=== PATIENT | female | born 1990 | race Caucasian/White ===

== ENCOUNTER 2016-12-28 21:16 | Emergency (ER) | payer OTHER ==
[~2016-12-28] VITALS: Ht 162.6 cm; Wt 46.5 kg
[~2016-12-28 21:16] MED LIST: NITR-58 PO; ONDA4TAB14 PO; PSYL1040 PO
[2016-12-28 21:38] VITALS: Ht 162.6 cm; Wt 46.5 kg
[2016-12-28] MEDS ORDERED: ONDANSETRON 4 MG INJ IV STA (22:11)
[2016-12-28] MEDS ORDERED: SOD CHLORIDE 0.9% 1,000 ML IV STA (22:11)
[2016-12-28 22:17] LABS: URINE BLOOD (Dip) POC Negative (NEGATIVE)
[2016-12-28 22:51] LABS: BASOPHIL # 0.1 10^3/ul (0.0-0.1); BASOPHILS % 0.5 % (0.0-2.0); EOSINOPHILS % 0.2 % (0.0-7.0); HEMOGLOBIN 13.8 g/dl (12.0-16.0); LYMPHOCYTES # 1.4 10^3/ul (0.8-2.9); LYMPHOCYTES % 15.2 % (15.0-51.0); MEAN CORPUSCULAR HEMOGLOBIN 29.9 pg (29.0-33.0); MEAN CORPUSCULAR HGB CONC 34.5 g/dl (32.0-37.0); MEAN CORPUSCULAR VOLUME 86.6 fl (82.0-101.0); MEAN PLATELET VOLUME 10.9 fl (7.4-10.4); MONOCYTE # 0.7 10^3/ul (0.3-0.9); MONOCYTES % 7.2 % (0.0-11.0); NEUTROPHILS % 76.5 % (39.0-77.0); PLATELET COUNT 196 10^3/UL (140-415); RED BLOOD COUNT 4.62 10^6/ul (4.20-5.40); WHITE BLOOD COUNT 9.2 10^3/ul (4.8-10.8)
[2016-12-28 23:11] LABS: ALBUMIN 4.8 g/dl (3.3-4.9); ALBUMIN/GLOBULIN RATIO 1.65; BILIRUBIN,INDIRECT 0.4 mg/dl (0-1.1); BILIRUBIN,TOTAL 0.4 mg/dl (0.2-1.3); CALCIUM 9.7 mg/dl (8.4-10.2); CREATININE 0.71 mg/dl (0.44-1.00); POTASSIUM 4.1 mmol/L (3.5-5.1); TOTAL PROTEIN 7.7 g/dl (6.1-8.1)
--- NOTE | 2016-12-28 23:14 | RADRPT ---
PROCEDURE: CT abdomen and pelvis without contrast. CLINICAL INDICATION: Abdominal pain. TECHNIQUE: CT of the abdomen and pelvis without contrast was performed on a multidetector high-reso lution CT scanner. Coronal and sagittal reformatted images were obtained from the axial source image s. Images were reviewed on a high-resolution PACS workstation. The total exam CTDI equals 4.1 mGy an d the total exam DLP equals 202.69 mGy-cm. One or more of the following dose reduction techniques were used: - Automated exposure control. - Adjustment of the mA and/or kV according to patient size. - Use of iterative reconstruction technique. COMPARISON: Exam dated 01/19/2016 FINDINGS: Visualized lower thorax: The visualized lung bases are clear. The visualized heart is unremarkable. Hepatobiliary system and spleen: The liver is grossly unremarkable. There is no intra or extrahepat ic biliary ductal dilatation. The gallbladder is grossly unremarkable. The spleen is grossly unremar kable. The pancreas is grossly unremarkable. Adrenal glands and genitourinary system: The adrenal glands are grossly unremarkable. There is no n ephrolithiasis or hydronephrosis. The urinary bladder is grossly unremarkable. The uterus and adnex a are grossly unremarkable. Gastrointestinal system: The stomach and small bowel are unremarkable. There is no bowel wall thick ening or evidence of obstruction. The appendix is in the right lower quadrant and is unremarkable. Peritoneum, vascular, and lymphatics: There is no free intraperitoneal air or free fluid. There is no mesenteric or retroperitoneal adenopathy. The aorta is nonaneurysmal. Musculoskeletal system and soft tissues: There are no concerning osseous lesions. The soft tissues are unremarkable. IMPRESSION: 1. Unremarkable examination with no acute abnormality or findings to suggest a source of the patien t's symptoms. RPTAT: HLBP .Maximiliano Nixon MD, MD Date Time Electronically viewed and signed by .Maximiliano Nixon MD, MD on 12/28/2016 23:14 .P/
[2016-12-28 23:16] LABS: ADD UMIC NO; UR ASCORBIC ACID NEGATIVE (NEGATIVE); UR BILIRUBIN (Dip) NEGATIVE (NEGATIVE); UR BLOOD (Dip) NEGATIVE (NEGATIVE); UR CLARITY CLEAR (CLEAR); UR COLOR COLORLESS (YELLOW); UR GLUCOSE (Dip) NEGATIVE (NEGATIVE); UR KETONES (Dip) NEGATIVE (NEGATIVE); UR LEUKOCYTE ESTERASE (Dip) NEGATIVE Leu/ul (NEGATIVE); UR NITRITE (Dip) NEGATIVE (NEGATIVE); UR SPECIFIC GRAVITY (Dip) 1.004 (1.003-1.030); UR TOTAL PROTEIN (Dip) NEGATIVE (NEGATIVE); UR UROBILINOGEN (Dip) NEGATIVE (NEGATIVE)
[2016-12-28] MEDS ORDERED: DICY10CA60 PO (23:39)
[2016-12-28] MEDS ORDERED: ONDA-43 PO (23:39)
--- NOTE | 2016-12-29 00:15 | ERD ---
ER Documentation Chief Complaint Date/Time DATE: 12/29/16 TIME: 00:11 Chief Complaint dizzy and lightheaded x 5 days, +abd pain/diarrhea/ nausea. -fever HPI This is a 26-year-old female that presents to the ER for multiple complaints. Patient states that on Thursday she was at work that she experienced an episode of abdominal pain with multiple episodes of diarrhea. Patient began to feel very nauseous and began to feel lightheaded and dizzy. Patient thought that it was an anxiety attack as she suffers from anxiety attacks however this was a little bit different. Patient went home and felt better on and Thursday. On Thursday patient had a similar episode and since then has been feeling nauseous, bloated, shaky, dizzy, fatigued. Patient denies any fevers or chills. She denies any chest pain. She does admit to crampy abdominal pain states that her stomach is very loud and she can hear growling. Diarrhea is nonbloody and watery in nature. Patient has been trying to drink more fluids for her symptoms. Patient has not traveled anywhere. There are no sick contacts at home. ROS 12 point review of systems was done, all negative except per HPI. Medications Home Meds Active Scripts Dicyclomine Hcl* (Bentyl*) 10 Mg Capsule, 10 MG PO QID for 5 Days, CAP Prov:GUALBERTO LUI 12/28/16 Ondansetron Hcl* (Zofran*) 4 Mg Tab, 4 MG PO Q4H Y for NAUSEA AND OR VOMITING, # 15 TAB Prov:GUALBERTO LUI 12/28/16 Ondansetron (Ondansetron Odt) 4 Mg Tab.rapdis, 4 MG PO BID Y for NAUSEA AND/OR VOMITING for 5 Days, #10 TAB 0 Refills Prov:PASCUAL DILLON PA-C 01/19/16 Psyllium Seed* (Metamucil* Powder) 1,040 Gm Powder, 10 GM PO TID for 3 Days, # 90 EA 0 Refills Prov:PASCUAL DILLON PA-C 01/19/16 Nitrofurantoin Monohyd Macrocr* (Macrobid*) 100 Mg Capsr, 100 MG PO BID for 14 Days, #7 CAP 0 Refills Prov:PASCUAL DILLON PA-C 01/19/16 Allergies Allergies: Coded Allergies: No Known Allergy (Unverified , 01/19/16) PMhx/Soc Hx Respiratory Disorders: Yes (asthma ) Hx Alcohol Use: Yes (SOCIALLY) Hx Substance Use: No Hx Tobacco Use: No Smoking Status: Never smoker Physical Exam Vitals Vital Signs Date Time Temp Pulse Resp B/P Pulse Ox O2 Delivery O2 Flow Rate FiO2 12/28/16 21:38 99.2 119 20 132/86 100 Physical Exam GENERAL: The patient is well developed and appropriate for usual state of health , in no apparent distress. HEENT: Atraumatic. CHEST: Clear to auscultation bilaterally. There are no rales, wheezes or rhonchi. HEART: Regular rate and rhythm. No murmurs, clicks, rubs or gallops. ABDOMEN: Soft, nontender and nondistended. Good bowel sounds. No rebound or guarding. No gross peritonitis. No gross organomegaly or masses. No Wilkins sign or McBurney point tenderness. BACK: No midline or flank tenderness. NEURO: Alert and oriented. SKIN: There is no apparent rash or petechia. The skin is warm and dry. Result Diagram: 12/28/16222312/28/162223 Results 24 hrs Laboratory Tests Test 12/28/16 22:23 12/28/16 22:24 Bedside Urine pH (LAB) 7.0 Bedside Urine Protein (LAB) Negative Bedside Urine Glucose (UA) Negative Bedside Urine Ketones (LAB) Negative Bedside Urine Blood Negative Bedside Urine Nitrite (LAB) Negative Bedside Urine Leukocyte Esterase (L Negative White Blood Count 9.210^3/ul Red Blood Count 4.6210^6/ul Hemoglobin 13.8g/dl Hematocrit 40.0% Mean Corpuscular Volume 86.6fl Mean Corpuscular Hemoglobin 29.9pg Mean Corpuscular Hemoglobin Concent 34.5g/dl Red Cell Distribution Width 12.0% Platelet Count 34895^3/UL Mean Platelet Volume 10.9fl Neutrophils % 76.5% Lymphocytes % 15.2% Monocytes % 7.2% Eosinophils % 0.2% Basophils % 0.5% Nucleated Red Blood Cells % 0.0/100WBC Neutrophils # 7.010^3/ul Lymphocytes # 1.410^3/ul Monocytes # 0.710^3/ul Eosinophils # 0.010^3/ul Basophils # 0.110^3/ul Nucleated Red Blood Cells # 0.010^3/ul Urine Color COLORLESS Urine Clarity CLEAR Urine pH 7.0 Urine Specific [place] 1.004 Urine Ketones NEGATIVEmg/dL Urine Nitrite NEGATIVEmg/dL Urine Bilirubin NEGATIVEmg/dL Urine Urobilinogen NEGATIVEmg/dL Urine Leukocyte Esterase NEGATIVELeu/ul Urine Hemoglobin NEGATIVEmg/dL Urine Glucose NEGATIVEmg/dL Urine Total Protein NEGATIVEmg/dl Sodium Level 143mmol/L Potassium Level 4.1mmol/L Chloride Level 103mmol/L Carbon Dioxide Level 24mmol/L Anion Gap 20 Blood Urea Nitrogen 11mg/dl Creatinine 0.71mg/dl Glucose Level 97mg/dl Calcium Level 9.7mg/dl Total Bilirubin 0.4mg/dl Direct Bilirubin 0.00mg/dl Indirect Bilirubin 0.4mg/dl Aspartate Amino Transf (AST/SGOT) 15IU/L Alanine Aminotransferase (ALT/SGPT) 26IU/L Alkaline Phosphatase 54IU/L Total Protein 7.7g/dl Albumin 4.8g/dl Globulin 2.90g/dl Albumin/Globulin Ratio 1.65 Lipase 173U/L Current Medications Medications (Trade) Dose Ordered Sig/Cr Route PRN Reason Start Time Stop Time Status Last Admin Dose Admin Sodium Chloride (NS) 1,000 ml @ 1,000 mls/hr Q1H STAT IV 12/28/16 22:11 12/28/16 23:10 DC 12/28/16 22:22 Ondansetron HCl (Zofran Inj) 4 mg ONCE STAT IV 12/28/16 22:11 12/28/16 22:13 DC 12/28/16 22:21 Radiology Main Line: [phone] DIAGNOSTIC IMAGING REPORT Patient: NIKOLAS HARPER : 1990 Age: 26 Sex: F MR #: [id number] DOS: 12/28/16 2211 Ordering MD: GUALBERTO LUI PA-C Location: [facility] Room/Bed: PROCEDURE: CT abdomen and pelvis without contrast. CLINICAL INDICATION: Abdominal pain. TECHNIQUE: CT of the abdomen and pelvis without contrast was performed on a multidetector high-resolution CT scanner. Coronal and sagittal reformatted images were obtained from the axial source images. Images were reviewed on a high-resolution PACS workstation. The total exam CTDI equals 4.1 mGy and the total exam DLP equals 202.69 mGy-cm. One or more of the following dose reduction techniques were used: - Automated exposure control. - Adjustment of the mA and/or kV according to patient size. - Use of iterative reconstruction technique. COMPARISON: Exam dated 01/19/2016 FINDINGS: Visualized lower thorax: The visualized lung bases are clear. The visualized heart is unremarkable. Hepatobiliary system and spleen: The liver is grossly unremarkable. There is no intra or extrahepatic biliary ductal dilatation. The gallbladder is grossly unremarkable. The spleen is grossly unremarkable. The pancreas is grossly unremarkable. Adrenal glands and genitourinary system: The adrenal glands are grossly unremarkable. There is no nephrolithiasis or hydronephrosis. The urinary bladder is grossly unremarkable. The uterus and adnexa are grossly unremarkable. Gastrointestinal system: The stomach and small bowel are unremarkable. There is no bowel wall thickening or evidence of obstruction. The appendix is in the right lower quadrant and is unremarkable. Peritoneum, vascular, and lymphatics: There is no free intraperitoneal air or free fluid. There is no mesenteric or retroperitoneal adenopathy. The aorta is nonaneurysmal. Musculoskeletal system and soft tissues: There are no concerning osseous lesions. The soft tissues are unremarkable. IMPRESSION: 1. Unremarkable examination with no acute abnormality or findings to suggest a source of the patient's symptoms. RPTAT: HLBP .Maximiliano Nixon MD, MD Date Time Electronically viewed and signed by .Maximiliano Nixon MD, MD on 12/28/2016 23:14 .P/ CC: GUALBERTO LUI/[facility] This is a 26-year-old female presents here with multiple complaints. Patient likely has a viral process going on she does have diarrhea with crampy abdominal pain and nausea. Patient likely feels dizzy and lightheaded secondary to constant diarrhea, patient's laboratory work did not reveal any clinical dehydration. There were no electrolyte abnormalities and patient was able to tolerate p.o. fluids in the ER. An EKG was done there was no evidence of arrhythmias. [address] elevation no T-wave inversion. This EKG was read by Dr. Samayoa. Patient's neurological examination was completely benign with no focal neurological deficits I doubt intracranial pathology. Patient has not had any recent cough or cold symptoms or ear pain I doubt Mnire's disease or labyrinthitis. Regards to patient's abdominal pain suspicion for acute abdominal emergency is low as patient's abdominal examination is benign she is afebrile and her CT scan was normal. Patient will be sent home with Talha. She is to follow-up with her primary care doctor within 1-2 days return to ER sooner if symptoms worsen. My medical decision making shared with the patient she understands and agrees with plan Departure Diagnosis: Primary Impression: Abdominal pain Additional Impression: Dizziness Condition: Stable Patient Instructions: Possible Causes of Dizziness or Fainting, Dizziness, Unk Cause Additional Instructions: Call your primary care doctor TOMORROW for an appointment during the next 1-2 days.See the doctor sooner or return here if your condition worsens before your appointment time. GUALBERTO LUI Dec 29, 2016 00:15
[2016-12-30] MEDS ORDERED: ELEC100080 PO (10:31)
[2016-12-30] MEDS ORDERED: CIPR500T4 PO (10:31)
[2016-12-30] MEDS ORDERED: ACET500C5 PO (10:33)
== END 2016-12-29 | disposition home or self-care (01) ==
LOC: FTE 21:16
DX: R10.9 Unspecified abdominal pain (principal)
CPT/HCPCS: 36415; 74176; 80053; 81003; 83690; 85025; 93005; 96374; J2405; J7030; Z7502

== ENCOUNTER 2016-12-30 08:29 | Emergency (ER) | payer OTHER ==
[~2016-12-30] VITALS: Ht 162.6 cm; Wt 45.5 kg
[~2016-12-30 08:29] MED LIST changes: +DICY10CA60 PO; +ONDA-43 PO
[2016-12-30 08:30] VITALS: Ht 162.6 cm; Wt 45.5 kg
[2016-12-30] MEDS ORDERED: ACETAMINOPHEN 500 MG TAB PO STA (09:02)
[2016-12-30] MEDS ORDERED: ONDANSETRON 4 MG INJ IV STA (09:02)
--- NOTE | 2016-12-30 09:19 | ERD ---
ER Documentation Chief Complaint Date/Time DATE: 12/30/16 TIME: 09:16 Chief Complaint 3/10 abd pain with diarrhea x 1 week HPI This a 26-year-old female who presents the emergency department today complaining of abdominal pain and diarrhea for the past week. Patient states that she started with diarrhea her work proximal he 1 week ago. She been feeling weak and dizzy as well at that time. States she also had some nausea. States that the vomiting has improved as she has not eaten much and states she has also lost weight. Denies any foreign travel, fevers or chills. ROS All systems reviewed and are negative except as per history of present illness. Medications Home Meds Active Scripts Acetaminophen* (Tylophen*) 500 Mg Capsule, 1 CAP PO Q6H Y for PAIN AND OR ELEVATED TEMP, #30 CAP Prov:KAYODE HAWK PA-C 12/30/16 Electrolyte,Oral (Pedialyte) 1,000 Ml Solution, 100 ML PO Q6 Y for DIARRHEA, # 1000 ML Prov:KAYODE HAWK PA-C 12/30/16 Ciprofloxacin Hcl* (Ciprofloxacin Hcl*) 500 Mg Tablet, 500 MG PO BID for 5 Days , TAB Prov:KAYODE HAWK PA-C 12/30/16 Dicyclomine Hcl* (Bentyl*) 10 Mg Capsule, 10 MG PO QID for 5 Days, CAP Prov:GUALBERTO LUI 12/28/16 Ondansetron Hcl* (Zofran*) 4 Mg Tab, 4 MG PO Q4H Y for NAUSEA AND OR VOMITING, # 15 TAB Prov:GUALBERTO LUI 12/28/16 Ondansetron (Ondansetron Odt) 4 Mg Tab.rapdis, 4 MG PO BID Y for NAUSEA AND/OR VOMITING for 5 Days, #10 TAB 0 Refills Prov:PASCUAL DILLON PA-C 01/19/16 Psyllium Seed* (Metamucil* Powder) 1,040 Gm Powder, 10 GM PO TID for 3 Days, # 90 EA 0 Refills Prov:PASCUAL DILLON PA-C 01/19/16 Nitrofurantoin Monohyd Macrocr* (Macrobid*) 100 Mg Capsr, 100 MG PO BID for 14 Days, #7 CAP 0 Refills Prov:PASCUAL DILLON PA-C 01/19/16 Allergies Allergies: Coded Allergies: No Known Allergy (Unverified , 12/30/16) PMhx/Soc History of Surgery: No Anesthesia Reaction: No Hx Neurological Disorder: No Hx Respiratory Disorders: Yes (asthma ) Hx Cardiac Disorders: No Hx Psychiatric Problems: No Hx Miscellaneous Medical Probl: No Hx Alcohol Use: Yes (SOCIALLY) Hx Substance Use: No Hx Tobacco Use: No Smoking Status: Never smoker Physical Exam Vitals Vital Signs Date Time Temp Pulse Resp B/P Pulse Ox O2 Delivery O2 Flow Rate FiO2 12/30/16 08:30 100.1 113 22 140/87 100 Physical Exam Const: Thin, no acute distress Head: Atraumatic Eyes: Normal Conjunctiva ENT: Normal External Ears, Nose. Lips and mucosa dry Neck: Full range of motion..~ No meningismus. Resp: Clear to auscultation bilaterally Cardio: Regular rate and rhythm, no murmurs Abd: Soft, diffuse crampy abdominal pain with increased tenderness in the left upper quadrant, non distended. Normal bowel sounds. No specific tenderness McBurney's Skin: No petechiae or rashes Ext: No cyanosis, or edema Neur: Awake and alert Psych: Normal Mood and Affect Result Diagram: 12/30/1691912/30/16 0920 Results 24 hrs Laboratory Tests Test 12/30/16 09:20 White Blood Count 5.510^3/ul Red Blood Count 4.6310^6/ul Hemoglobin 14.2g/dl Hematocrit 40.4% Mean Corpuscular Volume 87.3fl Mean Corpuscular Hemoglobin 30.7pg Mean Corpuscular Hemoglobin Concent 35.1g/dl Red Cell Distribution Width 12.2% Platelet Count 24200^3/UL Mean Platelet Volume 10.9fl Neutrophils % 69.4% Lymphocytes % 22.7% Monocytes % 6.2% Eosinophils % 0.5% Basophils % 0.7% Nucleated Red Blood Cells % 0.0/100WBC Neutrophils # 3.810^3/ul Lymphocytes # 1.310^3/ul Monocytes # 0.310^3/ul Eosinophils # 0.010^3/ul Basophils # 0.010^3/ul Nucleated Red Blood Cells # 0.010^3/ul Sodium Level 144mmol/L Potassium Level 3.8mmol/L Chloride Level 103mmol/L Carbon Dioxide Level 24mmol/L Anion Gap 21 Blood Urea Nitrogen 9mg/dl Creatinine 0.70mg/dl Glucose Level 91mg/dl Calcium Level 9.7mg/dl Total Bilirubin 0.6mg/dl Direct Bilirubin 0.00mg/dl Indirect Bilirubin 0.6mg/dl Aspartate Amino Transf (AST/SGOT) 16IU/L Alanine Aminotransferase (ALT/SGPT) 24IU/L Alkaline Phosphatase 52IU/L Total Protein 7.8g/dl Albumin 4.6g/dl Globulin 3.20g/dl Albumin/Globulin Ratio 1.43 Lipase 97U/L Current Medications Medications (Trade) Dose Ordered Sig/Cr Route PRN Reason Start Time Stop Time Status Last Admin Dose Admin Sodium Chloride (NS) 1,000 ml @ 1,000 mls/hr Q1H ONCE IV 12/30/16 09:30 12/30/16 10:29 DC 12/30/16 09:25 Ondansetron HCl (Zofran Inj) 4 mg ONCE STAT IV 12/30/16 09:02 12/30/16 09:06 DC 12/30/16 09:25 Acetaminophen (Tylenol Tab) 500 mg ONCE STAT PO 12/30/16 09:02 12/30/16 09:06 DC 12/30/16 09:25 Procedures/MDM This 26-year-old female presents to the emergency department today for abdominal pain and diarrhea for the past week. Upon review of patient's medical record she was seen here in the emergency department 2 days ago and had a full abdominal workup. Her labs were all within normal limits and her CT scan was negative for any acute pathology. Patient was discharged home with Bentyl and Zofran however she admits to not taking it as she slept most of the day yesterday. Patient and fimoira were concerned because she had lost weight. Upon review of records patient has lost 1 kg from her last visit 2 days ago Today patient presents with continued diarrhea and weakness. She did have a low -grade temperature of 100.1. I did recheck patient's laboratory work. I do not feel that she requires a repeat CT scan at this time of the I have low suspicion for acute surgical abdomen. Laboratory workup shows no elevated white blood cell count. She is not anemic. Platelets are within normal limits. Electrolytes are within normal limits. Glucose is within normal limits liver enzymes are within normal limits. Lipase within normal limits. Patient symptoms at this time is consistent with abdominal pain and diarrhea. Given patient's normal laboratory workup I do not feel that she requires admission at this time. This may still be viral however given patient's fever today and persistent diarrhea with limited improvement over the past week I will treat the patient for infectious causes of diarrhea. Patient will be given a prescription for Cipro. I will give the patient a prescription for Pedialyte as well as Tylenol for her fever. She was instructed to use Zofran and Bentyl patient was counseled on proper diet and instructed to take in plenty of fluids even if she has the diarrhea. Patient understood Patient was given IV fluids, Zofran and Tylenol here in the emergency department At this time the patient is stable for discharge and outpatient management. Patient should follow up with their PCP in the next 1-2 days. They may return to the emergency department sooner for any persistent or worsening of symptoms. Patient understood and agreed with the plan. Discussed the patient with Dr. Samayoa and he is in agreement with the plan. Departure Diagnosis: Primary Impression: Abdominal pain Abdominal location: generalized Qualified Code: R10.84 - Generalized abdominal pain Additional Impression: Diarrhea Diarrhea type: unspecified type Qualified Code: R19.7 - Diarrhea, unspecified type Condition: KAYODE Smith PA-C Dec 30, 2016 09:19
[2016-12-30] MEDS ORDERED: SOD CHLORIDE 0.9% 1,000 ML IV ONE (09:30)
[2016-12-30 09:34] LABS: BASOPHILS % 0.7 % (0.0-2.0); EOSINOPHILS % 0.5 % (0.0-7.0); HEMATOCRIT 40.4 % (37.0-47.0); HEMOGLOBIN 14.2 g/dl (12.0-16.0); LYMPHOCYTES # 1.3 10^3/ul (0.8-2.9); LYMPHOCYTES % 22.7 % (15.0-51.0); MEAN CORPUSCULAR HEMOGLOBIN 30.7 pg (29.0-33.0); MEAN CORPUSCULAR HGB CONC 35.1 g/dl (32.0-37.0); MEAN CORPUSCULAR VOLUME 87.3 fl (82.0-101.0); MEAN PLATELET VOLUME 10.9 fl (7.4-10.4); MONOCYTE # 0.3 10^3/ul (0.3-0.9); MONOCYTES % 6.2 % (0.0-11.0); NEUTROPHIL # 3.8 10^3/ul (1.6-7.5); NEUTROPHILS % 69.4 % (39.0-77.0); PLATELET COUNT 191 10^3/UL (140-415); RED BLOOD COUNT 4.63 10^6/ul (4.20-5.40); RED CELL DISTRIBUTION WIDTH 12.2 % (11.5-14.5); WHITE BLOOD COUNT 5.5 10^3/ul (4.8-10.8)
[2016-12-30 09:55] LABS: ALBUMIN 4.6 g/dl (3.3-4.9); ALBUMIN/GLOBULIN RATIO 1.43; BILIRUBIN,INDIRECT 0.6 mg/dl (0-1.1); BILIRUBIN,TOTAL 0.6 mg/dl (0.2-1.3); CALCIUM 9.7 mg/dl (8.4-10.2); CREATININE 0.7 mg/dl (0.44-1.00); POTASSIUM 3.8 mmol/L (3.5-5.1); TOTAL PROTEIN 7.8 g/dl (6.1-8.1)
[2016-12-30] MEDS ORDERED: CIPR500T4 PO (10:31)
[2016-12-30] MEDS ORDERED: ELEC100080 PO (10:31)
[2016-12-30] MEDS ORDERED: ACET500C5 PO (10:33)
== END 2016-12-30 10:51 | disposition home or self-care (01) ==
LOC: FTE 08:29
DX: R10.84 Generalized abdominal pain (principal); R19.7 Diarrhea, unspecified; R11.0 Nausea; J45.909 Unspecified asthma, uncomplicated
CPT/HCPCS: 80053; 83690; 85025; J2405; J7030; Z7610; 96374